=== PATIENT | female | born 1970 | race Caucasian/White ===

== ENCOUNTER 2016-10-18 14:33 | Emergency (ER) | payer MEDICARE, MEDICAID ==
[2016-10-18 14:38] VITALS: BP 139/76
--- NOTE | 2016-10-18 15:57 | RAD ---
Indication: Left knee injury. 4 views of the left knee demonstrates no fracture. No other bone or joint abnormality is identified. IMPRESSION: No fracture of the left knee is noted.
[2016-10-18] MEDS ORDERED: HYDROcodone/ACETAMIN 5-325 MG* 1 TAB PO ONE (16:22)
--- NOTE | 2016-10-18 16:27 | ED ---
Arnulfo Smith Claudia, scribed for Eliecer Catherine MD on 10/18/16 at 1527 . Lower Extremity - HPI Summary HPI Summary: 45 year old female presents to the ED with left knee pain post mechanical fall. Pt notes she was playing on the playground with her daughter when she stepped on this turning mechanism and hyperextended her left knee when she fell. Pt denies NVD, abd pain, and fever/chills. Pt does admit to some pain around the posterior and lateral aspect of the knee joint. Pt notes she is unable to ambulate and stand on the knee due to pain and instability. Pt notes movement/ ambulating/standing all aggravate the pain. - History of Current Complaint Chief Complaint: EDExtremityLower Stated Complaint: LEFT KNEE PAIN Time Seen by Provider: 10/18/16 15:17 Hx Obtained From: Patient Hx Last Menstrual Period: current Mechanism Of Injury: Fall From A Standing Position Pain Intensity: 6 Pain Scale Used: 0-10 Numeric Timing: Constant Location: Is Discrete @ - left knee Associated Signs And Symptoms: Positive: Knee Pain. Negative: Redness, Bruising , Fever Aggravating Factor(s): Standing, Ambulation Alleviating Factor(s): Rest - Allergies/Home Medications Allergies/Adverse Reactions: Allergies Allergy/AdvReac Type Severity Reaction Status Date / Time No Known Allergies Allergy Verified 04/22/15 14:10 PMH/Surg Hx/FS Hx/Imm Hx Previously Healthy: Yes Endocrine/Hematology History: Denies: Hx Diabetes Cardiovascular History: Denies: Hx Hypertension, Hx Pacemaker/ICD Respiratory History: Denies: Hx Asthma Musculoskeletal History: Reports: Hx Arthritis - neck and back, Other Musculoskeletal History - titanium cage, cervical fusion in neck; back not done at that time Sensory History: Reports: Hx Contacts or Glasses - glasses Denies: Hx Hearing Aid Opthamlomology History: Reports: Hx Contacts or Glasses - glasses Neurological History: Reports: Hx Headaches - from neck injury- better lately Psychiatric History: Reports: Hx Anxiety, Hx Depression, Hx Panic Disorder, Hx Post Traumatic Stress Disorder, Hx Community Mental Health Tx, Hx Substance Abuse - Surgical History Surgery Procedure, Year, and Place: neck (disks removed) CSP FUSION WITH TITANIAM PLATES;. knee surgeries WITH PINS AND SCREWS;. breast augmentation;. TUBAL; Hx Anesthesia Reactions: No Infectious Disease History: Denies: Hx Clostridium Difficile, Hx Hepatitis, Hx Human Immunodeficiency Virus (HIV), Hx of Known/Suspected MRSA, Hx Shingles, Hx Tuberculosis, Traveled Outside the [place] in Last 30 Days - Family History Family History: NO FHX OF MALIGNANT HYPERTHERMIA - Social History Occupation: Unemployed Lives: Alone Alcohol Use: None Alcohol Amount: no current use reported Substance Use Type: Reports: None Substance Use Comment - Amount & Last Used: pt reports remote hx of substance abuse Smoking Status (MU): Former Smoker Type: Cigarettes Amount Used/How Often: 1-1.5 ppd x 15 years Have You Smoked in the Last Year: Yes Review of Systems Constitutional: Negative Negative: Fever, Chills Eyes: Negative ENT: Negative Cardiovascular: Negative Respiratory: Negative Gastrointestinal: Negative Negative: Abdominal Pain, Vomiting, Diarrhea, Nausea Genitourinary: Negative Musculoskeletal: Other - left knee pain Skin: Negative Neurological: Negative Psychological: Normal All Other Systems Reviewed And Are Negative: Yes Physical Exam Triage Information Reviewed: Yes Vital Signs On Initial Exam: Initial Vitals Temp Pulse Resp BP Pulse Ox 97.7 F 71 20 139/76 99 10/18/16 14:36 10/18/16 14:36 10/18/16 14:36 10/18/16 14:36 10/18/16 14:36 Vital Signs Reviewed: Yes Appearance: Positive: Well-Appearing, No Pain Distress Skin: Positive: Warm, Skin Color Reflects Adequate Perfusion, Dry Head/Face: Positive: Normal Head/Face Inspection Eyes: Positive: EOMI, ESTEFANI ENT: Positive: Normal ENT inspection Neck: Positive: Supple, Nontender Respiratory/Lung Sounds: Positive: Clear to Auscultation, Breath Sounds Present Cardiovascular: Positive: RRR Abdomen Description: Positive: Nontender, Soft Musculoskeletal: Positive: Other - pain to the left knee- lateral and posterior aspect. Pt notes she is unable to ambulate on it due to pain and instability. Patellar tendon is intact. Neurological: Positive: Normal, Sensory/Motor Intact, Alert, Oriented to Person Place, Time Psychiatric: Positive: Affect/Mood Appropriate Diagnostics - Vital Signs Vital Signs Temp Pulse Resp BP Pulse Ox 10/18/16 14:36 97.7 F 71 20 139/76 99 - Laboratory Lab Statement: Any lab studies that have been ordered have been reviewed, and results considered in the medical decision making process. - Radiology LEFT KNEE XRAY Xray Interpretation: No Acute Changes - NO FRACTURE OF THE LEFT KNEE IS NOTED Radiology Interpretation Completed By: Radiologist Re-Evaluation - Re-Evaluation 1 Re-Evaluation Time: 16:15 Comment: Discussed the Knee XR with pt. Follow-up with orthopedics and knee imbolizer and futher care of pt is discussed. Lower Extremity Course/Dx - Course Course Of Treatment: no critical care time Assessment/Plan: DISCUSSED RESUKLTS WITH PATIENT. WITH INSTABILITY OF KNEE, SUSPECT INTERNAL DERANGEMENT. F/U ORTHOPEDICS. KNEE IMMOBILIZER/CRUTCHES IN ED. DISCHARGE HOME STABLE. - Diagnoses Provider Diagnoses: Knee pain, left, Knee internal derangement Discharge - Discharge Plan Condition: Stable Disposition: HOME Prescriptions: HYDROcodone/ACETAMIN 5-325 MG* [Ferguson 5-325 TAB*] 1 tab PO Q4H PRN #20 tab MDD 6 PRN Reason: Pain Patient Education Materials: Knee Pain (ED), Knee Immobilizer (ED) Referrals: Meghann Pak MD [Primary Care Provider] - Lauren Coombs MD [Medical Doctor] - [facility] [Provider Group] Additional Instructions: FOLLOW UP WITH ORTHOPEDICS. RETURN TO THE EMERGENCY DEPARTMENT FOR ANY WORSENING OF YOUR CONDITION OR QUESTIONS OR CONCERNS. The documentation as recorded by the Arnulfo willard Claudia accurately reflects the service I personally performed and the decisions made by me, Eliecer Catherine MD.
== END 2016-10-18 16:49 | disposition home or self-care (01) ==
LOC: ED 14:33
DX: M23.92 Unspecified internal derangement of left knee (principal); Z87.891 Personal history of nicotine dependence
CPT/HCPCS: 99281

== ENCOUNTER 2017-02-09 11:56 | Emergency (ER) | payer MEDICARE, MEDICAID ==
--- NOTE | 2017-02-09 12:47 | UC ---
General HPI - HPI Summary HPI Summary: had some weakness and dizziness a few days ago---had appointment with Dr. 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 years ago---reports extreme stress with son being in penitentiary and house foreclosure - History of Current Complaint Chief Complaint: UCGeneralIllness Stated Complaint: DIZZINESS Time Seen by Provider: 02/09/17 12:36 Hx Obtained From: Patient Hx Last Menstrual Period: 01/14/17 Onset/Duration: Gradual Onset Timing: Intermittent Episodes Lasting: - brief Onset Severity: Mild Current Severity: None - Allergy/Home Medications Allergies/Adverse Reactions: Allergies Allergy/AdvReac Type Severity Reaction Status Date / Time No Known Allergies Allergy Verified 11/11/16 10:15 PMH/Surg Hx/FS Hx/Imm Hx Previously Healthy: No Psychological History: Anxiety, Depression, Post Traumatic Stress Disorder - Surgical History Surgical History: Yes Surgery Procedure, Year, and Place: neck (disks removed) CSP FUSION WITH TITANIAM PLATES;. RIGHT knee surgeries WITH PINS AND SCREWS;. BILATERAL breast augmentation;. TUBAL; - Family History Known Family History: Positive: None, Cardiac Disease, Other - cancer - Social History Occupation: Unemployed Lives: With Family - 3 year old daughter, teen son in penitentiary Alcohol Use: None Alcohol Amount: no current use reported Substance Use Type: None Substance Use Comment - Amount & Last Used: pt reports remote hx of substance abuse Smoking Status (MU): Current Some Day Smoker Type: Cigarettes Amount Used/How Often: 1-1.5 ppd x 15 years Have You Smoked in the Last Year: Yes When Did the Patient Quit Smoking/Using Tobacco: 9 months ago - Immunization History Most Recent Influenza Vaccination: never Most Recent Tetanus Shot: unsure Most Recent Pneumonia Vaccination: never Review of Systems Constitutional: Negative Skin: Negative Eyes: Negative ENT: Negative Respiratory: Negative Cardiovascular: Negative Gastrointestinal: Negative Genitourinary: Negative Motor: Weakness, Other - fatigue but does state that she has insomnia Neurovascular: Negative Musculoskeletal: Negative Neurological: Negative Psychological: Negative All Other Systems Reviewed And Are Negative: Yes Physical Exam Triage Information Reviewed: Yes Appearance: Well-Appearing, No Pain Distress, Well-Nourished Vital Signs: Initial Vital Signs Temp 99 F 02/09/17 12:09 Pulse 66 02/09/17 12:09 Resp 18 02/09/17 12:09 BP 108/66 02/09/17 12:09 Pulse Ox 99 02/09/17 12:09 Vital Signs Reviewed: Yes Eye Exam: Normal Eyes: Positive: Conjunctiva Clear ENT Exam: Normal ENT: Positive: Normal ENT inspection, Hearing grossly normal, Pharynx normal, TMs normal. Negative: Nasal congestion, Nasal drainage, Tonsillar exudate, Trismus Dental Exam: Normal Neck exam: Normal Neck: Positive: Supple, Nontender, No Lymphadenopathy Respiratory Exam: Normal Respiratory: Positive: Chest non-tender, Lungs clear, Normal breath sounds, No respiratory distress, No accessory muscle use Cardiovascular Exam: Normal Cardiovascular: Positive: RRR, No Murmur, Pulses Normal, Brisk Capillary Refill Musculoskeletal Exam: Normal Musculoskeletal: Positive: Strength Intact, ROM Intact, No Edema Neurological Exam: Normal Neurological: Positive: Alert, Muscle Tone Normal Psychological Exam: Normal Skin Exam: Normal Diagnostics - EKG Cardiac Rate: NL Cardiac Rhythm: Sinus: Normal Ectopy: None ST Segment: Normal Re-Evaluation - Re-Evaluation First Eval Change: Improved - napped, orthostatic wnl, feels better Course/Dx - Course Course Of Treatment: continue evaluation with Dr. Aguiar and pcp return for any acute sx - Differential Dx - Multi-Symptom Differential Diagnoses: CVA, Sepsis, Other - anxiety, lyme, orthostatic hypotension Provider Diagnoses: Fatigue Discharge - Discharge Plan Condition: Stable Disposition: HOME Patient Education Materials: Fatigue (ED) Referrals: Stephenie Aguiar MD [Medical Doctor] - (as planned ) Last Brown DO [Primary Care Provider] - 5 Days
[2017-02-09 13:25] VITALS: BP 120/83
--- NOTE | 2017-02-12 08:50 | UC ---
Progress - Progress Note Progress Note: please inform pt of test neg for lyme. this initial test does not rule out lyme. please follow up with pcp for recheck in 7-14 days Re-Evaluation - Re-Evaluation First Eval Change: Improved - napped, orthostatic wnl, feels better
== END 2017-02-09 14:05 | disposition home or self-care (01) ==
LOC: UCEAST 11:56
DX: R53.83 Other fatigue (principal); F41.9 Anxiety disorder, unspecified; F32.9 Major depressive disorder, single episode, unspecified; F43.10 Post-traumatic stress disorder, unspecified; Z87.891 Personal history of nicotine dependence
CPT/HCPCS: 86618; 93005; 99212; G0463

== ENCOUNTER 2017-03-01 09:06 | Day surgery (SDC) | payer MEDICARE, MEDICAID ==
--- NOTE | 2017-02-22 21:16 | HP ---
Completely redictated/edited in [employer] and pasted into [employer] by Dr. Moiz Rosales HISTORY AND PHYSICAL: DATE OF ADMISSION/SURGERY: 03/01/17 DATE OF OFFICE VISIT: 02/20/17 HPI: The patient is a 46-year-old woman, with 2 children, who bar tends lining parts sewer at the [employer], who is referred to me by Dr. Cano for a left knee ACL tear, sustained approximately 4 months ago in October of 2016. On the date of injury, the patient was playing at playground, walking on a balance beam when she fell approximately 1 foot off the balance beam and twisted her left knee. There was immediate swelling and pain and the patient was carried into a van. She was brought to the emergency department. The patient states that at the time of the injury she heard 2 pops. The patient denied any prior history of injury to that left knee. The patient was given crutches at the emergency room and used them for multiple weeks. She had not yet done physical therapy by the time she had been referred to my office. She had been taking meloxicam. The patient had been wearing a knee brace or knee sleeve but did not wear it into clinic. The patient, since her injury, has occasionally tweaked her knee at which point the pain acutely worsens. However she denies that knee giving out on her. No recent limp. Of note, the patient has a history of a contralateral right knee ACL reconstruction surgery in 1998. She states that knee occasionally produces some pain with activities of daily living now. We met the patient on January 24, 2017, her index clinic visit, having been referred by Dr. Cano. In clinic the patient had lateral joint line tenderness to palpation and lateral pain with Vasiliy's maneuver. She also had laxity with ACL stress testing and pain with pivot-shift maneuver. Her MRI from November 15, 2016, showed stereotypical lateral compartment bone bruises typical of an ACL tear or instability of the knee consistent with ACL injury acute or chronic. She had findings consistent with a complete ACL tear and a question of some proximal partial thickness PCL tearing. Of note, she had negative posterior drawer on exam. She appeared to have a tear in the posterior horn of the lateral meniscus, vertical, longitudinal versus root tear. On today's clinic visit with me, I described treatment for ACL tears. I described nonoperative and operative management. I told her that some people cope well without any ACL. Especially if the patient is not engaging in sports that require side to side movement such as soccer and basketball, she might do very well without surgery. The patient is convinced she wants surgery. The patient has not been to physical therapy yet. I described to the patient the long rehabilitation process postoperatively and how a significant number of visits with physical therapy are required or the patient endangers herself in having a stiff knee, which would make her have a worse knee than she currently has by certain metrics. She stated that she would be perfectly willing to do the work of physical therapy postoperatively and that she understands it well from her prior history of contralateral right knee ACL reconstruction surgery. I reminded her that was a while ago when she was much younger. The patient has children and multiple responsibilities including a job now, and she will have to attend physical therapy around those. I told the patient that she will have to demonstrate to me that she can go to physical therapy prior to me signing her up for surgery. I wrote a prescription for the patient to do a prehabilitation session, or multiple preoperatively. Of note, the patient still has not gone but has a visit with physical therapy scheduled. Also, at the last clinic visit I discussed graft options, autograft and allograft, multiple sources. We decided on allograft [id number] as the most appropriate option for the patient. I also described different treatments for lateral meniscus tear including no action, partial lateral meniscectomy, lateral meniscus repair, and posterior horn, root repair of lateral meniscus. I described the duration of crutch use after each one of those procedures. The patient presents today to discuss further surgery and for a formal history and physical. PAST MEDICAL HISTORY: COPD, depression, anxiety, PTSD, drug abuse. PAST SURGICAL HISTORY: Neck surgery in 2002, likely ACDF surgery. Right knee ACL reconstruction in 1998. CURRENT MEDICATIONS: Ventolin inhaler, Zoloft, oxycodone (p.r.n. neck and lower back pain: 5mg po q 6 hrs prn), Ritalin, trazodone, propranolol ( prescribed by a neurologist for stress according to the patient). ALLERGIES: No known drug allergies. SOCIAL HISTORY: Previous smoker, quit in 2012. Smoker from the age of 26 to 43 , beginning with 4-5 packs per day and ending with 1 pack per day close to the age of 43. Drinks socially. Recreational drug use in her distant past. ROS: No other joint pain besides an occasional ache in the right knee. No numbness or tingling, left lower extremity. No fevers, sweats, or chills. No shortness of breath or chest pain. EXAM: VITAL SIGNS: Temperature 97.4 degrees Farenheit, pulse 64, blood pressure 112/70, respirations 15, BMI 25.5 with a height of 69 inches and a weight of 173 pounds. GENERAL: No acute distress, alert and oriented, appropriate mood and affect, appropriate dress and hygiene, nonantalgic gait, well coordinated bilateral lower extremities. The patient answered all questions appropriately and was more focused in clinic today than at previous clinic visit when she was coloring with crayons while my gasket former started talking with her. The patient has been more appropriate while speaking with me. LEFT KNEE: Exam shows no soft tissue swelling or bruising. Skin is intact. No significant joint effusion. Passive range of motion of the left knee is 0- 130 degrees of flexion. Mild anterior pain with terminal flexion. Positive lateral joint line tenderness to palpation. Positive lateral pain with Vasiliy 's test. Ligamentous stress testing revealed laxity with Maurice's and anterior drawer testing, more so than in the right knee. Positive pain with pivot-shift maneuver. No clear positive posterior drawer. No pain or laxity with MCL or LCL stress testing. Trace positive patellofemoral compartment tenderness to palpation and negative patellofemoral compression test. Neurovascularly intact distally. STUDIES: Re-reviewed the patient's MRI of the left knee from November 15, 2016. Very poor visualization of the ACL in all slices including the sagittal oblique ACL series, consistent with a complete ligament tear. There is some thickening of the proximal PCL, possibly consistent with a partial thickness tear. Positive vertical longitudinal tearing of the posterior horn of the lateral meniscus, possibly including the root, although geometry of the tear is not entirely clear. ASSESSMENT: 1. Left knee anterior cruciate ligament tear. 2. Possible partial posterior cruciate ligament tear, proximal, left knee, without laxity on exam. 3. Left knee lateral meniscus tear, posterior horn. PLAN: 1. Discussed the diagnoses with the patient again. 2. The patient is interested still in anterior cruciate ligament reconstruction surgery as well as treatment of meniscus tear. I again reviewed the timeline of recovery and the required physical therapy involved, and that this can be managed nonoperatively. 3. The patient has yet to go to physical therapy but has a session scheduled. I will telephone the patient prior to surgery to confirm that she has indeed gone to this physical therapy session. If she has not, we will delay the surgery. (Update: the patient did indeed attend a PT session. I discussed it by telephone with the patient and have documentation) 4. We discussed with the patient that we will be stingy with narcotic pain medication postoperatively and under no circumstance will we allow the patient to take narcotics beyond 4 weeks postoperatively. 5. To the OR for left knee arthroscopic anterior cruciate ligament reconstruction with [id number] allograft, evaluation and treatment of lateral meniscus with possible partial lateral meniscectomy, lateral meniscus repair, or lateral posterior root repair. 6. We will have the patient set up her first physical therapy appointment for postop before the operation is performed. 7. As an aside, while it is 6 days after this clinic session that I am dictating this note, in reality I had JESENIA Perez dictate a note, and he did so within a day or so of the clinic visit. I decided to re-dictate a note in my own format. ALANIS
[~2017-03-01 09:06] MED LIST: Buffered Lidocaine 0.9% SYRIN* 5 ML/SYR SYRINGE INTRADERM ONE; Dexamethasone IV* 4 MG/ML 1 ML (4 MG) IV SLOW PU ONE; Famotidine IV* 10 MG/ML 2 ML (20 mg) IV ONE
[2017-03-01] MEDS ORDERED: Dexamethasone IV* 4 MG/ML 1 ML (4 MG) ONE (09:17)
[2017-03-01] MEDS ORDERED: Famotidine IV* 10 MG/ML 2 ML (20 mg) ONE (09:17)
[2017-03-01] MEDS ORDERED: ceFAZolin 2 GM PREMIX (*) 50 ML IVPB ONE (09:17)
[2017-03-01] MEDS ORDERED: Buffered Lidocaine 0.9% SYRIN* 5 ML/SYR SYRINGE ONE (09:18)
[2017-03-01] MEDS ORDERED: fentaNYL* 50 MCG/ML 2 ML VIAL (100 MCG VIAL) ONE ×4 (10:15→15:57)
[2017-03-01] MEDS ORDERED: Midazolam* 1 MG/ML 5 ML VIAL (5 MG) ONE (10:16)
[2017-03-01] MEDS ORDERED: Ketorolac INJ* 30 MG/ML 1 ML VIAL ONE (10:23)
[2017-03-01] MEDS ORDERED: ROPIVACAINE 5 MG/ML 30 ML BTL (0.5%) ONE (10:23)
[2017-03-01] MEDS ORDERED: Ondansetron INJ* 2 MG/ML VIAL ONE (10:23)
[2017-03-01] MEDS ORDERED: Propofol* 10 MG/ML 20 ML BTL IV PUSH ONE (10:23)
[2017-03-01] MEDS ORDERED: Atracurium* 10 MG/ML 10 ML VIAL ONE (10:23)
[2017-03-01] MEDS ORDERED: EPINEPHrine AMP 1 MG/ML ONE (10:49)
[2017-03-01] MEDS ORDERED: Lidocaine 1.5% EPI 1:200,000* 30 ML SDV ONE (10:49)
[2017-03-01] MEDS ORDERED: Atropine 1MG/ML INJ* 1 ML VIAL ONE (11:11)
[2017-03-01] MEDS ORDERED: Glycopyrrolate IV* 0.2 MG/ML 1 ML VIAL ONE (11:11)
[2017-03-01] MEDS ORDERED: Ondansetron INJ* 2 MG/ML VIAL IV PRN (13:04)
[2017-03-01] MEDS ORDERED: HYDROmorphone* 1 MG/ML 1 ML CARPUJECT IV PRN (13:04)
[2017-03-01] MEDS ORDERED: fentaNYL* 50 MCG/ML 2 ML VIAL (100 MCG VIAL) IV PRN (13:04)
[2017-03-01] MEDS ORDERED: DiMENhydriNATE IV* 50 MG/ML VIAL IV PUSH PRN (13:04)
[2017-03-01] MEDS ORDERED: Desflurane* 240 ML INH ONE (13:07)
[2017-03-01] MEDS ORDERED: oxyCODONE/Acetamin 5/325 MG* TAB ONE ×2 (15:16→15:54)
[2017-03-01] MEDS: oxyCODONE/Acetamin 5/325 MG* TAB PO PRN ×2 (15:20→15:55)
[2017-03-01 15:53] VITALS: BP 125/62
--- NOTE | 2017-03-02 06:21 | OP ---
DATE OF OPERATION: 03/01/17 [facility] DATE OF : 72 SURGEON: Magan Rosales MD TIE MAN: JESENIA Perez. A physician training and development assistant was required for positioning, retraction, and instrumentation throughout the procedure. ANESTHESIOLOGIST: Dr. Francisco Oden. ANESTHESIA: General anesthesia, regional femoral nerve block. PRE-OP DIAGNOSES: 1. Left knee anterior cruciate ligament tear. 2. Left knee lateral meniscus tear. POST-OP DIAGNOSES: 1. Left knee anterior cruciate ligament tear. 2. Left knee posterior horn lateral meniscus tear. OPERATIVE PROCEDURE: 1. Left knee arthroscopic anterior cruciate ligament reconstruction with bone patellar bone allograft. 2. Left knee arthroscopic partial lateral meniscectomy. 3. Left knee arthroscopic synovectomy. ANTIBIOTICS: 2 g Ancef IV. IV FLUIDS: 1700 cc crystalloid. TOURNIQUET TIME: Up for 45 minutes, then down for more than 18 minutes then up for approximately 100 minutes. At 300mmHg. SPECIMENS: None. IMPLANTS: Marjan Mitek 10 mm x 23 mm BioComposite screw in the femur. A 9 mm x 23 mm screw in the tibia. A FiberWire #5 sutures in ACL graft. Bone-patellar -bone allograft. COMPLICATIONS: None. ESTIMATED BLOOD LOSS: Minimal. INDICATIONS FOR SURGERY: The patient is a 46-year-old woman, who injured her left knee in October 2016, 4 months prior to surgery and was referred by Dr. Cano to me for a left knee ACL tear. MRI demonstrated some thickening of the proximal PCL consistent with a possible partial tear, although the patient had a negative posterior drawer on exam and no posterior lag on exam. She had poor visualization of the ACL consistent with a chronic ACL tear. There was also a vertical longitudinal tear about the posterior horn of the lateral meniscus, possible including the root. The patient has some risk factors for a successful outcome. She has a history of cigarette smoking, although she quit in 2012. She was formally a very smoker at one point in time smoking 4 to 5 packs per day. In the distal past she has used recreational drugs. More recently, the patient has been seen by neurology and diagnosed with an adrenergic or anxiety induced hand tremor. The patient had some questionable concentration on my observation when seen preoperative in my clinic. However, the patient was adamant about wanting surgical management. She had had the contralateral knee ACL reconstructed in the distant past and so understood the rehabilitation process. I had the patient go to a prehabilitation PT session. She told me she was going to schedule her first physical therapy appointment for the first 2 days preoperatively and she in fact has one scheduled for postoperative day 1. We made it clear that the patient would not receive pain medications, narcotics regardless of the situation more than 4 weeks postoperative. I talked to the patient about nonoperative and operative treatment of ACL tears and how many patients, especially at the patient's age and if they are not involved in sports with a lateral motion. The patient opted for surgical management. Discussed benefits, risks, and potential complications of surgery in clinic including bleeding, infection, nerve or blood vessel injury, blood clot, knee arthritis, hardware complications, and joint infection. DESCRIPTION OF PROCEDURE: Preoperative written consent was obtained. Operative extremity was marked in preoperative holding. Anesthesia performed with regional block in preoperative holding. The patient was taken back to the operating room and placed supine on the operating room table. The patient was sedated and intubated. With the patient under anesthesia, I performed a Maurice and anterior drawer test and they both showed greatly increased laxity compared to contralateral right knee. The padding was taken out from the left foot of the bed. [place] bumps were placed under the left hemipelvis. A lateral post was placed to the bed. The foot of the bed was not dropped down. The patient's left lower extremity was prepped with chlorhexidine about the foot and ankle followed by ChloraPrep about the entire left lower extremity. A tourniquet had been placed about the left proximal thigh. The patient was draped. A surgical time-out was performed. The Esmarch was applied and the tourniquet was elevated to 300 mmHg. A lateral knee arthroscopy portal skin incision was made and the knee was entered through the lateral portal. Diagnostic arthroscopy was commenced. No patellofemoral articular cartilage injury was noted. I moved to the medial compartment. No articular cartilage or meniscus damage noted. I then moved to the intracondylar notch. The patient did have visible ACL tissue present. I then moved to the lateral compartment. The patient had some clear fraying about the posterior horn of the lateral meniscus and some small fragments of meniscus splayed out from that posterior horn, tinniest small parrot beak fragments. With the leg in the [id number] position, I established an anteromedial portal that I knew I would be both able to work with and be able to view well with when I work thorough my anterolateral portal. This anteromedial portal was established under direct visualization. I then debrided the displaced small fragment of meniscal tissue with an arthroscopic shaver. I worked from both the anteromedial and the anterolateral portal. I probed the meniscus after debriding the displacement fragments and just some frayed tissue about the rest of the posterior horn. There was no other clear tear in the meniscus. The lateral meniscus posteriorly inserted about the base of the PCL and there was no clear other root attachment torn or intact. I next moved to the intercondylar notch. I used an arthroscopic probe to manipulate the ACL. It was immediately obvious that the ACL was not attached to the femur at all. I took several pictures demonstrating this. I probed the PCL and while it was thickened, it was intact to my probing. The PCL was indeed thickened though and took up a significant amount of the patient's intercondylar notch, which seemed narrow to my eye. We then placed the [facility] knee positioner into place and placed the knee in 90 degrees of flexion. I next prepared the intracondylar notch. I first created a second anteromedial portal. I did so with the knee in hyperflexion and I did so under visualization with this portal just superior to the meniscus, as far medial as possible, without endangering the medial femoral condyle with my future work. Working through the second anteromedial portal, I debrided the lateral wall of the intercondylar notch with vapor electrocautery and a shaver. I then used a jolene to perform a notchplasty. The bone was noted to be very soft in appearance. As soon as I saw this, I thought that I would likely be using a larger, rather than a smaller screw. With my notchplasty done, I then returned to back table where I dressed my allograft, which I had asked to be thawed as soon as I saw that the ACL was clearly torn. I returned to the back table. I had a precontoured [id number] allograft. I used bone crimpers to make the bone plugs a little bit narrower. I cut several mm off of the end to either bone plug. I made my patellar bone plug 24-mm long and my tibial tubercle bone plug 28-mm long. The graft was in reasonable condition. I placed FiberWire #5 stitches, 1 proximally and 2 distally. With 1 suture on either end of the graft, I placed whip stitches, 2 in each direction in the graft before placing the suture through drill holes and the bone plugs. I placed this graft under tension on a back table and put a wet sponge around it. I marked the marrow side of each bone plug and the end of each bone plug. I then returned to the knee. I used a Steinmann awl pick to zaheer the 1:30 o' clock position. That was done with the knee in 90 degrees of flexion. I then hyperflexed the knee, placed the around the back 7 mm guide and placed a pin. Once the pin was in place, I confirmed with an arthroscopic probe that there was enough bone posteriorly. I next used an acAktivito reamer, 10 mm to drill a bone tunnel 30 mm long. I removed pin and drill and shaved up the detritus with an arthroscopic shaver. I next returned the knee to 90 degrees of flexion. I placed my ACL tibial guide in place after debriding some of the insertion of the ACL tendon. I placed the tip-to- tip guide perhaps 1 mm posterior to the posterior aspect of the anterior horn of the lateral meniscus. I then placed the ACL tibial drill guide and placed over the skin and made a longitudinal skin incision about the anteromedial proximal lower leg. I incised the skin with an knife and then the superficial subcutaneous layer in the same manner. I then dissected with the scissors down to bone. I placed this ACL drill guide into place. I then malleted it into the bone. I then placed my pin. Unfortunately, the tip-to- tip guide was not perfectly oriented and the pin exited more medial than anticipated, but it was still acceptable. I then drilled with a fluted reamer 10 mm a tibial tunnel. The tibial tunnel was noted to be slightly medial as expected. I may have undercut the medial meniscus anterior horn slightly. I then placed a pin thorough the femoral tunnel and a passing stitch, which I brought down through the tibia tunnel. I placed my graft. With the graft in place, I then used a 7-8 tap and then the a 9- 10 tap. I decided on the 10-mm screw in the femur because of the soft appearance of the femoral bone. That screw purchase was excellent. I next placed the knee into full extension. I placed a posterior drawer. I placed the graft under tension. I tapped a 7-8 and then a 9-10. I decided on a 9-mm screw which also got good purchase. I stress tested at the ACL with Maurice and anterior drawer maneuvers and fixation seemed excellent. I cut suture ends. I irrigated incisions. I closed the distal longitudinal incision with a deep [id number] stitches using 0-Vicryl suture. I closed the subcutaneous layer of that incision with buried simple stitches using Vicryl 2.0 suture. We closed the skin incisions then with figure 8, 12, and 16 stitches using nylon 4.0 suture. Xeroform, 4x4s. I placed 10 cc of lidocaine 1.5% with epinephrine about the subcutaneous tissue at the longitudinal incision distally. Sterile Webril, nonsterile Webril, jumana bandage put to proximal thigh. The tourniquet was up until I went to work on my allograft. The tourniquet was then re-elevated when I returned to the knee and dropped with closure. An ice machine pack was placed over the knee followed by a knee brace locked in extension. The patient was awake and then transferred to the PACU. DISPOSITION: The patient will be discharged home when medically stable. The patient will get Percocet as needed for pain control, aspirin 325 mg p.o. b.i.d. x2 weeks for DVT prophylaxis, and will receive antibiotics, Keflex x7 days. She will follow up with me in 10 to 14 days postoperative. She will have her first physical therapy session on postoperative day #1. [id number]/[facility] #: [id number] ALANIS
== END 2017-03-01 16:12 | disposition home or self-care (01) ==
LOC: OR 09:06
PROVIDERS: ATTEND Orthopaedic Surgery
DX: S83.512A Sprain of anterior cruciate ligament of left knee, initial encounter (principal); S83.282A Other tear of lateral meniscus, current injury, left knee, initial encounter; G89.18 Other acute postprocedural pain; W17.89XA Other fall from one level to another, initial encounter; Y92.9 Unspecified place or not applicable; J44.9 Chronic obstructive pulmonary disease, unspecified; Z87.891 Personal history of nicotine dependence; F43.10 Post-traumatic stress disorder, unspecified; F98.8 Other specified behavioral and emotional disorders with onset usually occurring in childhood and adolescence; F32.9 Major depressive disorder, single episode, unspecified; R25.1 Tremor, unspecified
CPT/HCPCS: A9270-GY; C1713; C1776; J0171; J0461; J0690; J1100; J1885; J2250; J2405; J2704; J2795; J3010

== ENCOUNTER 2017-05-16 11:32 | Emergency (ER) | payer MEDICARE, OTHER ==
[2017-05-16 11:52] VITALS: BP 113/58
[2017-05-16] MEDS ORDERED: Tetan/Diph/Pertus SYR(Tdap)* 0.5 ML SYR(BOOSTRIX) use SYR IM ONE (13:29)
--- NOTE | 2017-05-16 13:42 | UC ---
Bite Injury/Animal HPI - HPI Summary HPI Summary: This is a 46 yo female who presents for evaluation of a cat scratch that was sustained earlier today. She reports that she has adopted a cat that was at the house they recently moved in to. They have been feeding the cat for several months. The cat has been social and purrs. The patient attempted to put the cat in to a carrier today to take them to the vet and the cat scratched her as she was entering the carrier. She immediately cleaned the area. No other complaints or injury. - History of Current Complaint Chief Complaint: UCBiteInjury Stated Complaint: CAT SCRATCH ON FACE Hx Last Menstrual Period: 04/19/17 - Allergies/Home Medications Allergies/Adverse Reactions: Allergies Allergy/AdvReac Type Severity Reaction Status Date / Time No Known Allergies Allergy Verified 05/16/17 12:05 PMH/Surg Hx/FS Hx/Imm Hx Previously Healthy: No - chronic pain, depression - Surgical History Surgical History: Yes Surgery Procedure, Year, and Place: NECK (disks removed) CSP FUSION WITH TITANIAM PLATES;. RIGHT knee surgeries WITH PINS AND SCREWS;. BILATERAL breast augmentation;. TUBAL LIGATION - Family History Known Family History: Positive: Cardiac Disease, Other - cancer - Social History Alcohol Use: None Alcohol Amount: no current use reported Substance Use Type: Marijuana Substance Use Comment - Amount & Last Used: MJ DAILY Smoking Status (MU): Current Some Day Smoker Type: Cigarettes Amount Used/How Often: OFF & ON X 20 YRS. 1/2 PPD-3 PPD Have You Smoked in the Last Year: Yes When Did the Patient Quit Smoking/Using Tobacco: PT. IS ATTEMPTING TO QUIT AT PRESENT - Immunization History Most Recent Influenza Vaccination: never Most Recent Tetanus Shot: unsure Most Recent Pneumonia Vaccination: never Review of Systems Constitutional: Negative Skin: Other - scratch Eyes: Negative ENT: Negative Respiratory: Negative Cardiovascular: Negative Gastrointestinal: Negative Genitourinary: Negative Motor: Negative Neurovascular: Negative Musculoskeletal: Negative Neurological: Negative Psychological: Negative Is Patient Immunocompromised?: No All Other Systems Reviewed And Are Negative: Yes Physical Exam Triage Information Reviewed: Yes Appearance: Well-Appearing Vital Signs: Initial Vital Signs Temp 98.9 F 05/16/17 11:46 Pulse 79 05/16/17 11:46 Resp 20 05/16/17 11:46 BP 113/58 05/16/17 11:46 Pulse Ox 96 05/16/17 11:46 Vital Signs Reviewed: Yes ENT Exam: Normal Dental Exam: Normal Neck exam: Normal Neck: Positive: Supple, Nontender, No Lymphadenopathy Respiratory Exam: Normal Respiratory: Positive: Chest non-tender. Negative: Crackles, Rhonchi, Stridor, Wheezing Cardiovascular Exam: Normal Cardiovascular: Positive: RRR, No Murmur Abdominal Exam: Normal Abdomen Description: Positive: Nontender Musculoskeletal Exam: Normal Neurological Exam: Normal Psychological Exam: Normal Skin: Positive: Other - 2 small lacerations over the L cheek each ~1cm in length and superficial that appear clean Bite Injury Course/Dx - Course Course Of Treatment: This is a 46 yo female who sustained a cat scratch from technically a feral cat that she has semi-adopted and fed over the last several months. She refused rabies treatment but accepted tetanus. No need for abx prophylaxis. - Differential Dx/Diagnosis Differential Diagnosis/HQI/PQRI: Cellulitis, Laceration, Puncture, Rabies Exposure Provider Diagnoses: 1. Cat scratch Discharge - Discharge Plan Condition: Stable Disposition: HOME Patient Education Materials: Animal Bite (ED) Referrals: Rubio Fernandez NP [Primary Care Provider] - If Needed Additional Instructions: Instructions: 1. Watch the site of scratch for signs of infection, ie. redness, swelling, pus like drainage
== END 2017-05-16 13:50 | disposition home or self-care (01) ==
LOC: UCEAST 11:32
DX: S00.81XA Abrasion of other part of head, initial encounter (principal); W55.03XA Scratched by cat, initial encounter; Y93.89 Activity, other specified; Y92.009 Unspecified place in unspecified non-institutional (private) residence as the place of occurrence of the external cause; F12.90 Cannabis use, unspecified, uncomplicated; Z72.0 Tobacco use
CPT/HCPCS: 90471; 90715; 99212; G0463

== ENCOUNTER 2019-08-16 05:40 | Day surgery (SDC) | payer MEDICARE, OTHER ==
[~2019-08-16 05:40] MED LIST changes: -Buffered Lidocaine 0.9% SYRIN* 5 ML/SYR SYRINGE INTRADERM ONE; +Buffered Lidocaine 1% SYRIN* 1 ML/SYRINGE INTRADERM ONE; -Dexamethasone IV* 4 MG/ML 1 ML (4 MG) IV SLOW PU ONE; -Famotidine IV* 10 MG/ML 2 ML (20 mg) IV ONE
[2019-08-16] MEDS ORDERED: Acetaminophen TAB* 325 MG PO ONE (06:00)
[2019-08-16] MEDS ORDERED: Lactated Ringers 1000 ML Bag* 1,000 ML IV SCH (06:00)
[2019-08-16] MEDS ORDERED: Acetaminophen TAB* 325 MG ONE (06:10)
[2019-08-16] MEDS ORDERED: ceFAZolin 2 GM in NS PREMIX(*) 2 GM/100 ML BAG IVPB ONE (06:10)
[2019-08-16] MEDS ORDERED: Buffered Lidocaine 1% SYRIN* 1 ML/SYRINGE INTRADERM ONE (06:10)
[2019-08-16] MEDS ORDERED: EPINEPHRINE 1 MG/ML 1 ML VIAL ONE (06:59)
[2019-08-16] MEDS ORDERED: Bupivacaine 0.5% W/EPI SDV* 10 ML VIAL INJ ONE (07:00)
[2019-08-16] MEDS ORDERED: ROPIVACAINE 5 MG/ML 30 ML BTL (0.5%) ONE (07:14)
[2019-08-16] MEDS ORDERED: fentaNYL* 50 MCG/ML 5 ML VIAL (250 MCG VIAL) ONE (07:22)
[2019-08-16] MEDS ORDERED: Midazolam* 1 MG/ML 2 ML VIAL (2 MG) ONE (07:23)
[2019-08-16] MEDS ORDERED: Lidocaine 2% PF * 5 ML VIAL ONE (07:24)
[2019-08-16] MEDS ORDERED: Propofol* 500 MG/50 ML BTL ONE ×2 (07:24→09:18)
[2019-08-16] MEDS ORDERED: fentaNYL* 50 MCG/ML 2 ML VIAL (100 MCG VIAL) ONE (07:27)
[2019-08-16] MEDS ORDERED: fentaNYL* 50 MCG/ML 2 ML VIAL (100 MCG VIAL) IV PRN (08:23)
[2019-08-16] MEDS ORDERED: Ketorolac INJ* 30 MG/ML 1 ML VIAL IV PRN (08:23)
[2019-08-16] MEDS ORDERED: diPHENhydraMINE IV* 50 MG/ML 1 ml VIAL (BENADRYL) IV PRN (08:23)
[2019-08-16] MEDS ORDERED: Naloxone* 0.4 MG/ML 1 ML VIAL IV PRN (08:23)
[2019-08-16] MEDS ORDERED: Ondansetron INJ* 2 MG/ML VIAL IV PRN (08:23)
[2019-08-16] MEDS ORDERED: HYDROmorphone INJ1* 1 MG/ML SYRINGE IV PRN (08:23)
[2019-08-16] MEDS ORDERED: HYDROmorphone TAB* 4 MG PO PRN (08:26)
[2019-08-16] MEDS ORDERED: KETAMINE HCL* 50 MG/ML 10 ML VIAL ONE (08:32)
[2019-08-16] MEDS ORDERED: Propofol* 10 MG/ML 20 ML BTL ONE (10:55)
[2019-08-16] MEDS ORDERED: Ketorolac INJ* 30 MG/ML 1 ML VIAL ONE (13:23)
[2019-08-16] MEDS ORDERED: EPHEDrine (Pressors)* 50 MG/ML VIAL ONE (14:52)
[2019-08-16] MEDS ORDERED: Dexamethasone IV* 4 MG/ML 1 ML (4 MG) ONE (14:54)
[2019-08-16 14:59] VITALS: BP 123/93
[2019-08-16] MEDS ORDERED: HYDROmorphone INJ1* 1 MG/ML SYRINGE ONE (15:29)
--- NOTE | 2019-08-18 05:38 | OP ---
OPERATIVE REPORT: DATE OF OPERATION: 08/16/19 DATE OF : 72 SURGEON: Magan Rosales MD DRIVER MANAGER: JESENIA Watson A physician account management assistant was required for the length of procedure for assistance with patient positionin g, retraction, instrumentation, and closure. ANESTHESIOLOGIST: Dr. Megha Younger. ANESTHESIA: General anesthesia, regional adductor canal block anesthesia, local anesthesia with Leo colton 0.5% with epinephrine, 30 cc. PRE-OP DIAGNOSES: 1. 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 2. Status post January 2017 left knee arthroscopic anterior cruciate ligament reconstruction with bon v-zquorror-caex allograft and partial lateral meniscectomy. POST-OP DIAGNOSES: 1. Left knee anterior cruciate ligament recurrent re-tear, full thickness. 2. Status post January 2017 left knee arthroscopic anterior cruciate ligament reconstruction with bon b-uqhuibdu-bfyy allograft, partial lateral meniscectomy. OPERATIVE PROCEDURE: Left knee arthroscopic revision, anterior cruciate ligament reconstruction with Achilles allograft. INDICATIONS: The patient is a 48-year-old, who underwent 03/01/17 left knee ACL reconstruction witho ut any difficulty. She recovered well. However, subsequently, the patient had several falls. A big fall was in the spring, specific ally a fall at work at the end of October 2018. Since that time, the patient had no complaints regarding the left knee. MRI was eventually ordered. The patient was delayed in coming to hospital, then saw Dr. Cano and then was referred to me. MRI was concerning for a partial thickness re-tear. We tried nonoperative managements and the patient failed it with and so she opted for surgery. She t hen opted to delay surgery until the weather was slightly better. The patient takes chronic Suboxone and we coordinated with the prescribing physician to establish a p harmeet or rather the patient did. She was to hold Suboxone perioperatively while on Percocet and then i f any withdrawal symptoms were encountered, she would take partial doses postoperatively. The patien t admits to cigarette smoking in the past, significant, but quit in 2012. The patient does smoke mar ijuana regularly now. I discussed the risks and potential complications of surgery with the patient including recurrent tea r ACL. We discussed a variety of graft options and we decided on the Achilles allograft. ANTIBIOTICS: Ancef 2 g IV. IV FLUIDS: See Anesthesia note. [id number]-WE-[id number] TIME: 153 minutes. TOURNIQUET TIME: 115 minutes at 300 mmHg left thigh tourniquet. Those were not continuous, 115 zulema sharda. The tourniquet was dropped for a prolonged period of time during graft preparation. SPECIMEN: None. IMPLANTS: Arthrex BioComposite interference screws, 9 x 20 mm in the femur, 9 x 20 mm in the tibia. Also utilized a screw and washer in the tibia, it was Synthes, 4.5 mm, partially threaded with a was her, 40 mm long. COMPLICATIONS: None. ESTIMATED BLOOD LOSS: Minimal. DESCRIPTION OF PROCEDURE: In preoperative holding, the patient signed a written consent. Operative extremity was marked in the preoperative holding. I covered with the patient the possibility that she might need partial meniscectomy or other meniscus treatment, and the low probability, possibility that if the patient's tunnels were found to be unexp ectedly large that she would have to have a bone grafting and 2-stage revision procedure. This was u nlikely, but this was covered with the patient. The patient underwent an adductor canal block by Anesthesia. The patient was brought back to the ope rating room and placed supine on operating room table. Sedated and intubated. A blanket bump was placed under the left hemipelvis. The left lower extremity was prepped and draped . A lateral post has been applied on the bed. Formal surgical time-out performed. Esmarch was applied and the tourniquet was elevated. Left knee anterolateral knee arthroscopy portal was established using standard technique. I commence d diagnostic arthroscopy. The patient had some synovitis anteriorly. No articular cartilage damage to the patellofemoral compartment noted. Evaluation of the medial and lateral compartments demonstrat ed no significant articular cartilage injury. A little bit of fraying about the posterior root of th e lateral meniscus, but no clear tear. I then evaluated the intercondylar notch. There was some graft, lester looking, but thin, still intac t looking at first. However, it was clear that the proximal most aspect of that graft had completely torn off the femur and had scarred into the PCL. Therefore, this was a full-thickness tear. At this point, the decision was made to proceed definitively with revision ACL reconstruction surgery . The [facility] Knee Positioner was put into place. I made an anteromedial knee arthroscopy portal in the accessory position and I debrided the torn ACL graft with an arthroscopic shaver. No notchplasty was required, but I used an arthroscopic shaver to debride about the former femoral tunnel site. It had not filled in with bone. There was some bone, but much fibers material and suture. I used a cautery device and an arthroscopic shaver to debride up the tissue. I was surprised that the tunnel was not very wide even after I debrided it. I next placed a Beath pin down the center of the preexisting tunnel with the knee hyperflexed appropr iately. I reamed up progressively larger sizes to ensure fresh bone edges in all directions. I ream ed progressively from 8 mm up to 10.5 mm. Bone tunnel position was excellent referencing all anatomic landmarks and we had nice fresh bone exposed on all surfaces for excellent fyjb-wn-fvid healing. I next returned the knee to a flexion position of 90 degrees. I made a skin incision through the jose or scar of the prior lower leg incision. I extended that a little bit proximally and distally. I di ssected down to the location of the prior aperture of the tibial tunnel. There was a suture visible in 2 locations, but between the 2 suture areas, there was a bone that had had healed over. I debrid ed that bone with a rongeur, found 2 sutures and debrided there. I debrided with an arthroscopic sha randolph, the area of the tibial tunnel both from outside the knee, the inferior aspect of the tibial tunn el as well as from the inside of the knee arthroscopically. It was apparent that much of the tunnel appeared to have filled in. I therefore used somewhat of a h ybrid technique. I used both the current location of the vestige of the old tibial tunnel as well as the ACL tibial guide set to 55 degrees in appropriate intraarticular landmarks, to place my Beath pi n. I then reamed progressively larger sizes from 8 up to 10.5 mm. Both tunnels had been reestablish ed. I was happy with them. The tourniquet was now dropped and I moved to the back table for graft preparation. An Achilles allog raft had been thawed. I went about preparing it. I contoured a bone block of calcaneus and cut the appropriate amount of Achilles tendon. My graft was about 9.7 cm long. I placed FiberWire #5 suture in the proximal end of the graft through the bone block and I placed two #2 FiberWire FiberLoop sutu re stitches, distal tendinous end. Graft was certainly robust. I kept in under tension on the back table and returned to the knee. I placed a passing suture through the femoral and tibial tunnels. I then used that passing suture to pass my graft. I tapped and then placed a 9 x 20 mm BioComposite screw in the femur. There was squeaking indicative of excellent purchase and fit, tight. I next extended the knee fully and applied a posterior drawer stress to it. I tied the sutures dista lly around a screw and washer that I placed bicortically using a Synthes 4.5-mm screw. I examined th e knee and there was no laxity with Maurice's or anterior drawer. To supplement the fixation, I then applied an interference screw into the tibial tunnel using a 9 x 2 0 mm BioComposite screw. Again, I examined the knee, there was no laxity on exam. I arthroscoped th e knee. Graft appeared to be in excellent position and it was under good tension to arthroscopic pro edna. I next went about closure. Skin arthroscopic incisions closed with tyvmej-fi-chhzg and 12 stitches u sing nylon 3-0 suture. The lower leg incision fascia was closed with [id number]-oa-hmcta stitches using Vicryl 0 suture. Subcutaneous layer closed with very simple stitches using Vicryl 2-0 suture. A ski n incision closed with a running stitch using nylon 3-0 suture. Local anesthetic was injected about all of these skin incision sites. Xeroform, 4x4s, ABD, sterile Webril, non-sterile Webril and Jai ba ndages from foot to proximal groin. Cooling unit applied. Knee brace locked in extension. The maria de jesus ent was awakened, extubated, and transferred to the PACU. DISPOSITION: The patient was to be discharged home and medically stable. She will take Keflex for 7 days for infection prophylaxis and aspirin for 2 weeks for DVT prophylaxis. She will receive Percoc et as needed for pain control. She will manage her Suboxone as told to her by her Suboxone [facility] physician. She will see me in clinic in 10 to 14 days postoperatively. She will start physical t herapy immediately. [id number]/[facility] #: [id number]
== END 2019-08-16 15:05 | disposition home or self-care (01) ==
LOC: OR 05:40
PROVIDERS: ATTEND Orthopaedic Surgery
DX: S83.512A Sprain of anterior cruciate ligament of left knee, initial encounter (principal); W19.XXXA Unspecified fall, initial encounter; Y92.9 Unspecified place or not applicable; Y99.0 Civilian activity done for income or pay; F41.8 Other specified anxiety disorders; G89.18 Other acute postprocedural pain; F43.10 Post-traumatic stress disorder, unspecified; M19.90 Unspecified osteoarthritis, unspecified site; Z87.891 Personal history of nicotine dependence
CPT/HCPCS: 76000; A9270-GY; C1713; C1768; J0690; J1100; J1170; J1885; J2250; J2704; J2795; J3010

== ENCOUNTER 2020-01-08 08:14 | Inpatient (IN) ==
[2020-01-08 09:07] LABS: ABS Eosinophils 0.1 10^3/ul (0-0.6); ABS Lymphocytes 1.5 10^3/ul (1.0-4.8); ABS Monocytes 0.3 10^3/ul (0-0.8); Eosinophil % 1.6 %; Hematocrit 36 % (35-47); Hemoglobin 12.1 g/dL (12.0-16.0); Mean Corpuscular HGB Conc 34 g/dL (31-36); Mean Corpuscular Hemoglobin 26 pg (27-31); Mean Corpuscular Volume 78 fL (80-97); Mean Platelet Volume 6.5 fL (7.4-10.4); Platelet Count 269 10^3/uL (150-450); Red Blood Count 4.61 10^6 /uL (3.70-4.87); Red Cell Distribution Width 15 % (10-15); White Blood Count 4.9 10^3/uL (3.5-10.8)
[2020-01-08 09:09] LABS: Urine Appearance Cloudy; Urine Bilirubin Negative (Negative); Urine Blood Negative (Negative); Urine Color Yellow; Urine Glucose Negative (Negative); Urine Ketones Negative (Negative); Urine Nitrite Negative (Negative); Urine Protein Negative (Negative); Urine Specific Gravity 1.023 (1.010-1.030); Urine Urobilinogen Negative (Negative)
[2020-01-08 09:22] LABS: ALT 18 U/L (7-52); AST 16 U/L (13-39); Albumin 4.6 g/dL (3.2-5.2); Albumin/Globulin Ratio 1.5 (1-3); Alkaline Phosphatase 51 U/L (34-104); Anion Gap 6 mmol/L (2-11); BUN/Creatinine Ratio 23.5 (8-20); Blood Urea Nitrogen 16 mg/dL (6-24); CO2 Carbon Dioxide 27 mmol/L (22-32); Calcium 9.3 mg/dL (8.6-10.3); Chloride 105 mmol/L (101-111); EGFR African American 111.7 (>60); EGFR Non-African American 92.3 (>60); Globulin 3.1 g/dL (2-4); Glucose 96 mg/dL (70-100); Potassium 3.7 mmol/L (3.5-5.0); Sodium 138 mmol/L (135-145); Total Protein 7.7 g/dL (6.4-8.9)
[2020-01-08 09:23] LABS: Urine Bacteria Absent (Absent); Urine Red Blood Cell Absent (Absent); Urine Squamous Epithelial Cell Present (Absent); Urine White Blood Cell Trace(0-5/hpf) (Absent)
[2020-01-08 09:24] LABS: Urine Benzodiazepine Screen None Detected (None Detect); Urine Cannabinoids Screen Presumptive Positive (None Detect); Urine Opiates Screen None Detected (None Detect)
[2020-01-08 09:52] LABS: Acetaminophen < 15 mcg/mL; Alcohol, S < 10 mg/dL (<10); Salicylate < 2.50 mg/dL (<30)
[2020-01-08 10:08] LABS: TSH Ultra Thyroid Stim Horm 0.92 mcIU/mL (0.34-5.60)
[2020-01-09] MEDS ORDERED: Al Hydrox/Mg Hydrox/Simet LIQ 30 ML UDC PO PRN (11:51)
[2020-01-09] MEDS ORDERED: Ondansetron ODT 4 mg TAB 4 MG TAB SL ONE (12:48)
[2020-01-09] MEDS ORDERED: Buprenorp/Nalox 8-2 MG SL TAB SL SCH (14:00)
[2020-01-09] MEDS ORDERED: CMCS: Meloxicam 7.5 mg TAB (NF) PO PRN (14:06)
[2020-01-09] MEDS: Buprenorp/Nalox 8-2 MG SL TAB SL SCH (18:14)
[2020-01-10] MEDS: Nicotine GUM 4MG FRUIT FLAVOR PO PRN ×4 (06:03→18:08)
[2020-01-10] MEDS: Buprenorp/Nalox 8-2 MG SL TAB SL SCH ×3 (06:03→18:07)
[2020-01-10 08:11] LABS: HDL Cholesterol 39.3 mg/dL
[2020-01-10] MEDS: Vitamin THERAPEUTIC TAB PO SCH (08:37)
[2020-01-11] MEDS: Buprenorp/Nalox 8-2 MG SL TAB SL SCH ×3 (06:20→18:02)
[2020-01-11] MEDS: Nicotine GUM 4MG FRUIT FLAVOR PO PRN ×3 (08:23→18:02)
[2020-01-11] MEDS: Vitamin THERAPEUTIC TAB PO SCH (08:23)
[2020-01-12] MEDS: Buprenorp/Nalox 8-2 MG FILM SL FILM SCH ×4 (05:50→17:50)
[2020-01-12] MEDS: Nicotine GUM 4MG FRUIT FLAVOR PO PRN ×5 (05:52→20:22)
[2020-01-12] MEDS: Vitamin THERAPEUTIC TAB PO SCH (09:10)
[2020-01-13] MEDS: Buprenorp/Nalox 8-2 MG FILM SL FILM SCH ×3 (06:23→17:32)
[2020-01-13] MEDS: Nicotine GUM 4MG FRUIT FLAVOR PO PRN ×5 (06:25→20:54)
[2020-01-13] MEDS: Vitamin THERAPEUTIC TAB PO SCH (07:20)
[2020-01-14] MEDS: Buprenorp/Nalox 8-2 MG FILM SL FILM SCH ×3 (05:50→18:16)
[2020-01-14] MEDS: Nicotine GUM 4MG FRUIT FLAVOR PO PRN ×3 (08:58→17:48)
[2020-01-14] MEDS: Vitamin THERAPEUTIC TAB PO SCH (08:58)
[2020-01-15] MEDS: Buprenorp/Nalox 8-2 MG FILM SL FILM SCH ×3 (07:08→17:43)
[2020-01-15] MEDS: Nicotine GUM 4MG FRUIT FLAVOR PO PRN ×4 (07:11→18:51)
[2020-01-15] MEDS: Vitamin THERAPEUTIC TAB PO SCH (09:20)
[2020-01-16] MEDS: Buprenorp/Nalox 8-2 MG FILM SL FILM SCH ×3 (07:20→17:19)
[2020-01-16] MEDS: Nicotine GUM 4MG FRUIT FLAVOR PO PRN ×3 (08:38→20:21)
[2020-01-16] MEDS: Vitamin THERAPEUTIC TAB PO SCH (08:38)
[2020-01-17] MEDS: Buprenorp/Nalox 8-2 MG FILM SL FILM SCH (05:44)
[2020-01-17] MEDS: Nicotine GUM 4MG FRUIT FLAVOR PO PRN (06:57)
[2020-01-17] MEDS: Vitamin THERAPEUTIC TAB PO SCH (08:26)
[2020-01-17 09:22] VITALS: BP 114/59
== END 2020-01-17 12:00 | disposition home or self-care (01) | DRG 885 ==
LOC: ED 08:14 → BSU 01-09 14:01
PROVIDERS: ADMIT Nurse Practitioner Psychiatric/Mental Health; ATTEND Psychiatry & Neurology Psychiatry

== ENCOUNTER 2023-02-12 15:53 | Inpatient (IN) ==
[2023-02-12 17:56] LABS: Urine Appearance Cloudy; Urine Bilirubin Negative (Negative); Urine Blood Negative (Negative); Urine Color Yellow; Urine Glucose Negative (Negative); Urine Ketones Negative (Negative); Urine Nitrite Negative (Negative); Urine Protein Negative (Negative); Urine Specific Gravity 1.026 (1.002-1.030); Urine Urobilinogen Negative (Negative)
[2023-02-12 18:15] LABS: Urine Benzodiazepine Screen None Detected (None Detect); Urine Cannabinoids Screen Presumptive Positive (None Detect); Urine Opiates Screen None Detected (None Detect)
[2023-02-12 18:28] LABS: ABS Eosinophils 0.2 10^3/uL (0.0-0.5); ABS Lymphocytes 2.6 10^3/uL (1.0-4.8); ABS Monocytes 0.4 10^3/uL (0.0-0.9); ABS Neutrophils 3.1 10^3/uL (1.5-7.6); ABS Nucleated RBC 0.01 10^3/ul; Eosinophil % 2.9 %; Hematocrit 31.4 % (35-45); Hemoglobin 10.2 g/dL (11.5-14.3); Lymphocyte % 41.4 %; Mean Corpuscular Hemoglobin 23.4 pg (27-33); Mean Corpuscular Hgb Conc 32.5 g/dL (31-36); Mean Corpuscular Volume 71.9 fL (80-97); Mean Platelet Volume 6.3 fL (7.5-11.2); Nucleated Red Blood Cells % 0.1 /100 WBC (0.0-0.4); Platelet Count 307 10^3/uL (150-450); Red Blood Count 4.37 10^6/uL (3.63-4.92); Red Cell Distribution Width 19.3 % (12-17); White Blood Count 6.4 10^3/uL (3.8-11.8)
[2023-02-12 18:42] LABS: ALT 20 U/L (7-52); AST 18 U/L (13-39); Albumin 3.9 g/dL (3.2-5.2); Albumin/Globulin Ratio 1.5 (1-3); Alkaline Phosphatase 56 U/L (35-149); Anion Gap 9 mmol/L (2-16); Blood Urea Nitrogen 18 mg/dL (6-24); CO2 Carbon Dioxide 26 mmol/L (22-32); Calcium 8.7 mg/dL (8.6-10.3); Chloride 107 mmol/L (101-111); Creatinine, Serum 0.52 mg/dL (0.51-0.95); Globulin 2.6 g/dL (2-4); Glucose 149 mg/dL (70-100); Potassium 3.7 mmol/L (3.5-5.0); Sodium 142 mmol/L (135-145); Total Protein 6.5 g/dL (6.4-8.9); eGFR CKD-EPI 112.4 (>60)
[2023-02-12 18:54] LABS: Acetaminophen < 15 mcg/mL; Alcohol, S < 13 mg/dL (<13); Salicylate < 2.50 mg/dL (<30)
[2023-02-12 19:09] LABS: TSH Ultra Thyroid Stim Horm 0.88 mcIU/mL (0.34-5.60)
[2023-02-12] MEDS ORDERED: Al Hydrox/Mg Hydrox/Simet LIQ 30 ML UDC PO PRN (22:58)
[2023-02-13] MEDS: Vitamin THERAPEUTIC TAB PO SCH (08:56)
[2023-02-13 09:00] LABS: HDL Cholesterol 46.6 mg/dL
[2023-02-14] MEDS: Vitamin THERAPEUTIC TAB PO SCH (08:00)
[2023-02-15] MEDS: Vitamin THERAPEUTIC TAB PO SCH (07:33)
[2023-02-15 09:36] VITALS: BP 130/64
== END 2023-02-15 12:00 | disposition home or self-care (01) | DRG 885 ==
LOC: ED 15:53 → EDHOLD 21:28 → BSU 22:25
PROVIDERS: ADMIT Psychiatry & Neurology Psychiatry; ATTEND Psychiatry & Neurology Psychiatry